=== PATIENT | female | born 1970 | race African-American/Black ===

== ENCOUNTER 2017-04-11 10:59 | Emergency (ER) | payer OTHER ==
[~2017-04-11] VITALS: Wt 92.0 kg
[~2017-04-11 10:59] MED LIST: ALBU8.5H3 INH; BENZ100C70 PO; CETI10CA PO; IBUP-1542 PO; LOPE2CAP PO; MECL25TA2 PO; NAPR-260 PO; ONDA4TAB35 PO
[2017-04-11] MEDS ORDERED: KETOROLAC 30 MG INJ IM STA (11:54)
[2017-04-11] MEDS ORDERED: HYDROCODONE/APAP (5/325) TAB PO ONE (12:00)
--- NOTE | 2017-04-11 12:38 | ERD ---
ER Documentation Chief Complaint Date/Time DATE: 04/11/17 TIME: 12:34 Chief Complaint back pain, onset this am while getting out of car HPI This is a 47-year-old female presenting to emergency department with acute onset back pain starting earlier today. Patient states she was reaching and twisting to grab some and out of her car when she had sudden onset back pain. Pain is midline to mid back. Denies nt rates pain 8/10. Denies shortness of breath or difficulty breathing. Denies heart palpitations. No chest wall pain or chest pain. ROS All systems reviewed and are negative except as per history of present illness. Medications Home Meds Active Scripts Loratadine* (Loratadine*) 10 Mg Tablet, 10 MG PO DAILY, #30 TAB Prov:FLAKITA LEMOS NP 04/11/17 Fluticasone Propionate (Flonase Allergy Relief) 9.9 Ml [place].susp, 1 SPRAY NASAL DAILY, #1 BOTTLE TO EACH NOSTRIL Prov:FLAKITA LEMOS NP 04/11/17 Ibuprofen* (Motrin*) 600 Mg Tab, 600 MG PO Q6, #30 TAB Prov:FLAKITA LEMOS NP 04/11/17 Baclofen* (Baclofen*) 10 Mg Tablet, 10 MG PO Q8, #10 TAB Prov:FLAKITA LEMOS NP 04/11/17 Ibuprofen* (Motrin*) 600 Mg Tab, 600 MG PO Q6H Y for PAIN AND OR ELEVATED TEMP, #30 TAB Prov:HALIE TEJADA NP 12/21/15 Cetirizine Hcl* (Zyrtec*) 10 Mg Capsule, 10 MG PO DAILY, #30 TAB.CHEW Prov:HALIE TEJADA NP 12/21/15 Albuterol Sulfate* (Proair HFA*) 8.5 Gm Hfa.aer.ad, 2 PUFF INH Q4H Y for WHEEZING AND SOB, #1 INHALER Prov:HALIE TEJADA NP 12/21/15 Benzonatate* (Tessalon Perle*) 100 Mg Capsule, 100 MG PO Q8H Y for COUGH, #30 CAP Prov:HALIE TEJADA NP 12/21/15 Meclizine Hcl* (Antivert*) 25 Mg Tablet, 25 MG PO Q8H for DIZZINESS, #14 TAB Prov:JEREMY BROWN DO 07/04/15 Loperamide Hcl* (Imodium*) 2 Mg Capsule, 2 MG PO Q6H Y for DIARRHEA, #10 CAP MAX 16 mg/day Prov:JEREMY BROWN DO 07/04/15 Naproxen* (Naprosyn*) 500 Mg Tablet, 500 MG PO BID, #14 TAB Prov:JEREMY BROWN DO 07/04/15 Ondansetron Hcl* (Zofran* ODT) 4 mg -ODT Tab.disper, 4 MG PO Q4H Y for NAUSEA AND OR VOMITING, #10 TAB Prov:JEREMY BROWN DO 07/04/15 Allergies Allergies: Coded Allergies: guaifenesin (Verified Allergy, Mild, VOMIT, 04/11/17) PMhx/Soc History of Surgery: Yes ( section) Anesthesia Reaction: No Hx Neurological Disorder: No Hx Respiratory Disorders: Yes (URIs) Hx Cardiac Disorders: No Hx Psychiatric Problems: No Hx Miscellaneous Medical Probl: No Hx Alcohol Use: Yes (Social) Hx Substance Use: Yes (Med Marijuana) Hx Tobacco Use: No Smoking Status: Never smoker Physical Exam Vitals Vital Signs Date Time Temp Pulse Resp B/P Pulse Ox O2 Delivery O2 Flow Rate FiO2 04/11/17 11:01 98.8 89 17 124/89 98 Physical Exam Const: No acute distress, alert Head: Atraumatic Eyes: Normal Conjunctiva ENT: Normal External Ears, Nose and Mouth. Neck: Full range of motion..~ No meningismus. Resp: Clear to auscultation bilaterally. No wheezing, rhonchi or crackles. No stridor or labored breathing. Cardio: Regular rate and rhythm, no murmurs. Abd: Soft, non tender, non distended. Normal bowel sounds Skin: No petechiae or rashes Back: No midline or flank tenderness. paraspinous tenderness Ext: No cyanosis, or edema Neur: Awake and alert Psych: Normal Mood and Affect Results 24 hrs Current Medications Medications (Trade) Dose Ordered Sig/Tyler Route PRN Reason Start Time Stop Time Status Last Admin Dose Admin Ketorolac Tromethamine (Toradol) 30 mg ONCE STAT IM 04/11/17 11:54 04/11/17 11:55 DC 04/11/17 12:34 Acetaminophen/ Hydrocodone Bitart ([place] (5/325)) 1 tab ONCE ONCE PO 04/11/17 12:00 04/11/17 12:01 DC 04/11/17 12:35 Procedures/MDM MDM: This is a 47-year-old female presenting to emergency department for acute onset back pain after twisting and reaching for something in her car earlier today. No signs or symptoms of respiratory distress. No heart palpitations or chest pain. Patient given Toradol 30 mg IM and [place] 5/325mg while in the ED. Upon reassessment, patient states pain has improved. Patient also states she has had cold symptoms since yesterday and was requesting medication for this. Patient states she has mild cough, rhinitis and rhinorrhea. Patient likely has back strain. Low suspicion for cauda equina syndrome, acute fracture, acute dislocation, epidural abscess, malignancy and AAA rupture. Differential Diagnosis includes but is not limited to back strain, vertebral fracture, herniated disc, spinal stenosis and nephrolithiasis. Patient is appropriate for outpatient management will be given prescription for baclofen, ibuprofen, loratadine and Flonase. Patient instructed to follow-up with primary care provider in the next 2-3 days for reassessment and additional management. Return to ED for any high fever, chest pain, difficulty breathing, shortness breath, wheezing, vomiting, diarrhea, abdominal pain or any new or worsening symptoms. Patient verbalizes understanding. All questions answered at discharge. Disclaimer: Inadvertent spelling and grammatical errors are likely due to EHR/ dictation software use and do not reflect on the overall quality of patient care. Also, please note that the electronic time recorded on this note does not necessarily reflect the actual time of the patient encounter. Departure Diagnosis: Primary Impression: Injury of back Encounter type: initial encounter Qualified Code: S39.92XA - Injury of back , initial encounter Condition: Stable FLAKITA LEMOS NP Apr 11, 2017 12:38
[2017-04-11] MEDS ORDERED: IBUP-1542 PO (12:47)
[2017-04-11] MEDS ORDERED: BACL10TA PO (12:47)
[2017-04-11] MEDS ORDERED: FLUT9.9S NASAL (13:03)
[2017-04-11] MEDS ORDERED: LORA10TA3 PO (13:03)
[2017-04-11 13:15] VITALS: BP 128/78; PULSE 72; RESP 19; TEMP 98.4
== END 2017-04-11 13:17 | disposition home or self-care (01) ==
LOC: FTE 10:59
DX: S39.92XA Unspecified injury of lower back, initial encounter (principal); X58.XXXA Exposure to other specified factors, initial encounter; Y92.810 Car as the place of occurrence of the external cause
CPT/HCPCS: J1885; Z7502; Z7610; 99283

== ENCOUNTER 2018-08-14 09:28 | Day surgery (SDC) | payer OTHER ==
[~2018-08-14] VITALS: Ht 181.6 cm; Wt 98.1 kg
[~2018-08-14 09:28] MED LIST changes: -ALBU8.5H3 INH; +ALBU8.5H8 INH; +BACL10TA PO; +BENZ-6 PO; -BENZ100C70 PO; +FLUT9.9S NASAL; +LORA10TA3 PO; -NAPR-260 PO; +NAPR-985 PO
[2018-08-14 10:10] VITALS: Ht 181.6 cm; Wt 98.1 kg
[2018-08-14] MEDS ORDERED: FENTAnyl 50 MCG/ML VIAL ONE (11:48)
[2018-08-14] MEDS ORDERED: MIDAZOLAM 1 MG/ML 2 ML INJ ONE ×3 (11:49)
[2018-08-14 12:09] VITALS: BP 129/84; PULSE 54; RESP 20
== END 2018-08-14 14:54 | disposition home or self-care (01) ==
LOC: GIL 09:28
PROVIDERS: ATTEND Internal Medicine Gastroenterology
DX: Z12.11 Encounter for screening for malignant neoplasm of colon (principal); D12.0 Benign neoplasm of cecum; D12.5 Benign neoplasm of sigmoid colon; K64.4 Residual hemorrhoidal skin tags
CPT/HCPCS: 45380; 45385; 88305; J2250; J3010; Z7610